=== PATIENT | male | born 1990 | race African-American/Black ===

== ENCOUNTER 2022-06-05 02:29 | Emergency (ER) | payer MEDICAID ==
[~2022-06-05] VITALS: Ht 167.6 cm; Wt 67.0 kg
[2022-06-05 05:07] VITALS: BP 122/74
[2022-06-05] MEDS ORDERED: LIDOCAINE HCL/PF 1% 10 MG/ML 5ML VIAL INFIL ONE (05:15)
[2022-06-05] MEDS ORDERED: TOPUD PO (05:33)
== END 2022-06-05 06:03 | disposition home or self-care (01) ==
LOC: ER 02:29
DX: S01.511A Laceration without foreign body of lip, initial encounter (principal); W01.190A Fall on same level from slipping, tripping and stumbling with subsequent striking against furniture, initial encounter; Y93.89 Activity, other specified; Y92.018 Other place in single-family (private) house as the place of occurrence of the external cause
CPT/HCPCS: 12011; 99282; J3490